=== PATIENT | female | born 1985 | race African-American/Black ===

== ENCOUNTER 2020-07-29 18:10 | Emergency (ER) | payer MEDICAID ==
[~2020-07-29 18:10] MED LIST: dilantin
== END 2020-07-29 19:11 | disposition left against medical advice (07) ==
LOC: ER 18:10
DX: Z53.21 Procedure and treatment not carried out due to patient leaving prior to being seen by health care provider (principal)

== ENCOUNTER 2020-07-29 19:31 | Emergency (ER) | payer MEDICAID ==
[~2020-07-29] VITALS: Ht 165.1 cm; Wt 64.0 kg
[2020-07-29] MEDS ORDERED: IBUPROFEN 600MG TABLET PO ONE (21:00)
[2020-07-29 23:03] VITALS: BP 117/74
== END 2020-07-29 23:06 | disposition home or self-care (01) ==
LOC: ER 19:31
DX: S00.83XA Contusion of other part of head, initial encounter (principal); Z98.890 Other specified postprocedural states; V48.5XXA Car driver injured in noncollision transport accident in traffic accident, initial encounter; Y93.89 Activity, other specified; Y92.89 Other specified places as the place of occurrence of the external cause; Y99.8 Other external cause status
CPT/HCPCS: 70486; 81025; 99285

== ENCOUNTER 2021-06-28 19:32 | Emergency (ER) | payer MEDICAID ==
[~2021-06-28] VITALS: Ht 175.3 cm; Wt 77.0 kg
[2021-06-28 23:00] VITALS: BP 119/64
== END 2021-06-28 23:23 | disposition home or self-care (01) ==
LOC: ER 19:32
DX: T51.0X1A Toxic effect of ethanol, accidental (unintentional), initial encounter (principal); X58.XXXA Exposure to other specified factors, initial encounter; Z98.890 Other specified postprocedural states
CPT/HCPCS: 99283

== ENCOUNTER 2025-11-14 21:04 | Emergency (ER) | payer MEDICAID, OTHER ==
[2025-11-14] MEDS: SODIUM CHLORIDE 0.9% 1,000 ML IV ONE (21:39)
[2025-11-14 21:44] LABS: GLUCOSE URINE NEGATIVE (NEGATIVE); KETONES URINE NEGATIVE (NEGATIVE); LEUKOCYTE ESTERASE URINE 1+ (NEGATIVE); NITRITE URINE NEGATIVE (NEGATIVE); OCCULT BLOOD URINE 2+ (NEGATIVE); PH URINE 7.5 (4.5-8.0); PROTEIN URINE NEGATIVE (NEGATIVE); SPECIFIC GRAVITY URINE 1.021 (1.005-1.030); UROBILINOGEN URINE 1.0 E.U./dL (0.2-1.0)
[2025-11-14 21:53] LABS: *AMPHETAMINES SCREEN URINE NEGATIVE (NEGATIVE); *BARBITURATES SCREEN URINE NEGATIVE (NEGATIVE); *BENZODIAZEPINES SCREEN URINE NEGATIVE (NEGATIVE); *COCAINE SCREEN URINE NEGATIVE (NEGATIVE); CANNABINOID URINE SCREEN PRESUMPTIVE POSITIVE (NEGATIVE); ECSTASY MDMA SCREEN URINE NEGATIVE (NEGATIVE); METHADONE URINE SCREEN NEGATIVE (NEGATIVE); OPIATES URINE SCREEN NEGATIVE (NEGATIVE); PHENCYCLIDINE URINE SCREEN NEGATIVE (NEGATIVE)
[2025-11-14 22:00] LABS: BASOPHILS % 0.6 % (0.0-2.0); EOSINOPHILS % 4.9 % (0.0-5.0); HEMATOCRIT. 31.5 % (36.0-48.0); HEMOGLOBIN. 10.3 g/dL (12.0-16.0); LYMPHOCYTES % 35.7 % (20.0-50.0); MEAN PLATELET VOLUME 8.2 fl (7.4-10.4); MONOCYTES % 8.3 % (2.0-8.0); NEUTROPHILS % 50.5 % (40.0-76.0); PLATELET 196 x1000/uL (130-400); RED BLOOD CELL COUNT 3.71 mill/uL (4.2-5.4); RED CELL DISTRIBUTION WIDTH 20.4 % (11.6-14.6)
[2025-11-14 22:13] LABS: COLOR URINE STRAW (YELLOW)
[2025-11-14 22:14] LABS: CLARITY URINE SL HAZY (CLEAR)
[2025-11-14 22:18] LABS: SQUAMOUS EPITHELIAL CELL URINE FEW /lpf (RARE/1+); WBC URINE 0-2 /hpf (0-2)
[2025-11-14 22:19] LABS: BACTERIA URINE NONE SEEN
[2025-11-14 22:23] LABS: CREATININE 0.8 mg/dL (0.6-1.0); HCG SCREEN NEGATIVE
[2025-11-14 22:24] LABS: ETHANOL BLOOD < 10 mg/dL (<10); PROTEIN TOTAL 6.7 g/dL (6.0-8.3); UREA NITROGEN BLOOD 20 mg/dL (9-23)
[2025-11-14 22:25] LABS: ASPARTATE AMINOTRANSFERASE 16 IU/L (<34)
[2025-11-14 22:26] LABS: BILIRUBIN DIRECT < 0.1 mg/dL (<=3.0); BILIRUBIN TOTAL 0.2 mg/dL (0.1-1.0)
[2025-11-14 22:32] LABS: B-HCG QUANTITATIVE < 1 mIU/mL (<6)
[2025-11-14 23:00] LABS: INR 0.9
[2025-11-14] MEDS: MAGNESIUM 2 G PREMIX 50 ML IV ONE (23:02)
[2025-11-15 00:56] VITALS: BP 129/81; PULSE 78; RESP 15; TEMP 37; O2SAT 100
== END 2025-11-15 01:08 | disposition home or self-care (01) ==
LOC: ER 21:04
DX: E83.42 Hypomagnesemia (principal); R10.20 Pelvic and perineal pain unspecified side; Z98.890 Other specified postprocedural states; Z79.899 Other long term (current) drug therapy
CPT/HCPCS: 86695; 86696; 80076; 80305; 80048; 81003; 80320; 84703; 84702; 83690; 83735; 85025; 85610; 85730; 86850; 86900; 86901; 87340; 86592; 36415; 76801; 96361; 96365; 96366; 99285; J3475; J7030; G0480